=== PATIENT | male | born 1945 | race Two or more races ===

== ENCOUNTER → 2017-02-06 | Outpatient (CLI) | payer MEDICARE ==
--- NOTE | 2017-02-06 15:26 | XR ---
EXAMINATION TYPE: XR KUB DATE OF EXAM: 02/06/2017 CLINICAL DATA: , [facility] COMPARISON: FINDINGS: Supine imaging limited for assessment of free intraperitoneal air. Nonobstructive bowel gas pattern with [id number] stool. 6 mm calcific density projecting at the right. Median mid abdomen. Rounded calcifications in the pelvis suggest phleboliths. IMPRESSION: Given the patient's symptoms of right renal colic, unable to exclude a 6 mm upper to mid right ureter al calculus.
== END ==
LOC: RADXRMAIN 14:58
PROVIDERS: ATTEND Urology
DX: N23 Unspecified renal colic (principal)
CPT/HCPCS: 74000